=== PATIENT | male | born 1970 | race Caucasian/White ===

== ENCOUNTER → 2016-11-26 | Outpatient (CLI) | payer OTHER ==
[~2016-11-26] MED LIST: /CELE20CA OR; E-Z-GAS II EFFERVESCENT PACKET (SODIUM BICARB./CITRIC ACID/SIMETHICONE) As Ordered ONE; E-Z-HD 98% w/w 340GM SUSP BTL As Ordered ONE; E-Z-PAQUE 96% w/w SUSP 176GM BTL As Ordered ONE; GLUC500T3 OR; MULTIVIT OR
--- NOTE | 2016-11-26 16:55 | REP ---
Esophagram The procedure was performed under the direct supervision of Dr. Cuevas. The images were reviewed with Dr. Cuevas. A single view PA chest x-ray is submitted as a attending pathologist film. The superior mediastinal structures are midline. The heart size is within normal limits. The lungs are clear. Liquid barium and gas producing granules were given in the erect position as well as liquid barium in the prone oblique positions in order to perform a double contrast esophagram examination. The oral and pharyngeal stages of deglutition are unremarkable. Esophageal transport is prompt and efficient and there is no esophagitis, stricture, mucosal ring or hiatal hernia. Gastroesophageal reflux is not demonstrated on this examination. Impression: essentially unremarkable double contrast esophagram examination. 40 seconds of fluoro time was utilized for this procedure. Reviewed by ELIAJH Escoto 11/26/2016 04:42 PSigned by Moose Cuevas MD 11/26/2016 04:47 P
== END ==
LOC: M RAD 06:45
PROVIDERS: ATTEND Specialist
DX: K21.9 Gastro-esophageal reflux disease without esophagitis (principal)

== ENCOUNTER → 2017-01-28 | Outpatient (CLI) | payer OTHER ==
[~2017-01-28] MED LIST changes: -E-Z-GAS II EFFERVESCENT PACKET (SODIUM BICARB./CITRIC ACID/SIMETHICONE) As Ordered ONE; -E-Z-HD 98% w/w 340GM SUSP BTL As Ordered ONE; -E-Z-PAQUE 96% w/w SUSP 176GM BTL As Ordered ONE; +METHACHOLINE KIT (J7674) INH ONE
--- NOTE | 2017-01-28 09:25 | PFTRPT ---
Tech: José THOMPSON RRT Age: 46 Sex: Male Race: Height: 70.50 Inches Weight: 220.00 Lbs BSA: 2.18 Diagnosis: R05 METHACHOLINE CHALLENGE REPORT: ORDERING PROVIDER: FAZAL Francis DATE OF SERVICE: 01/28/17 INTERPRETATION: The study was of excellent technical quality. Under protocol, methacholine was administered. At a dose of 0.025 mg (0.125 CDUs), a 32% decline in the FEV1 was noted. Flow rates did return to baseline post bronchodilator administration. IMPRESSION: Positive methacholine challenge study. MTDD
== END ==
LOC: M CARPUL 08:55
PROVIDERS: ATTEND Nurse Practitioner Adult Health
DX: R05 Cough (principal)
CPT/HCPCS: 94070; J7674

== ENCOUNTER → 2017-12-27 | Outpatient (CLI) | payer OTHER | LOC: M PLARAD 10:22 | DX: M65.871 Other synovitis and tenosynovitis, right ankle and foot (principal) | CPT/HCPCS: 73721 ==

== ENCOUNTER → 2018-02-27 | Outpatient (CLI) | payer OTHER | LOC: M PLARAD 09:47 | DX: M47.812 Spondylosis without myelopathy or radiculopathy, cervical region (principal); M54.12 Radiculopathy, cervical region; M54.6 Pain in thoracic spine; M51.26 Other intervertebral disc displacement, lumbar region; R93.7 Abnormal findings on diagnostic imaging of other parts of musculoskeletal system | CPT/HCPCS: 72141 ==

== ENCOUNTER → 2018-08-12 | Outpatient (REF) | payer OTHER ==
[~2018-08-12] MED LIST changes: -/CELE20CA OR; +CELE1CAP4 OR; -METHACHOLINE KIT (J7674) INH ONE
[2018-08-12 18:28] LABS: INR 0.99; PROTHROMBIN TIME 13.2 SECONDS (12.1-14.4)
[2018-08-12 18:29] LABS: PARTIAL THROMBOPLASTIN TIME 27.9 SECONDS (25.4-37.6)
== END ==
LOC: M LABDRAW1 17:04
PROVIDERS: ATTEND Physician Assistant
DX: Z01.812 Encounter for preprocedural laboratory examination (principal)

== ENCOUNTER → 2019-05-17 | Outpatient (REF) | payer OTHER ==
[2019-05-17 15:30] LABS: PLATELET COUNT, AUTOMATED 160 10^3/uL (150-450)
[2019-05-17 15:42] LABS: PARTIAL THROMBOPLASTIN TIME 27.4 SECONDS (25.0-38.4); PROTHROMBIN TIME 12.9 SECONDS (11.8-14.0)
== END ==
LOC: M LABDRAW1 11:27
PROVIDERS: ATTEND Physician Assistant
DX: M47.22 Other spondylosis with radiculopathy, cervical region (principal)

== ENCOUNTER → 2019-07-23 | Outpatient (CLI) | payer OTHER ==
--- NOTE | 2019-07-23 10:51 | REP ---
Ultrasonography of the anterior abdominal wall in the location of a palpable lump just superior and left lateral to the umbilicus: Ultrasonography of the palpable lump identifies a mottled hyperechoic mass within the abdominal wall soft tissues measuring 3.3 x 2.5 x 4.4 cm. This is nonspecific and could represent a soft tissue mass, abscess, organizing hematoma or neoplasm. The Followup MRI might be considered for further evaluation. Electronically Signed by Benji Murry MD 07/23/2019 10:43 A
== END ==
LOC: M RAD 09:02
PROVIDERS: ATTEND Surgery
DX: R19.02 Left upper quadrant abdominal swelling, mass and lump (principal)

== ENCOUNTER → 2019-08-19 | Outpatient (CLI) | payer OTHER ==
[~2019-08-19] MED LIST changes: +GASTROGRAFIN SOLUTION 30ML (Q9963) As Ordered ONE; +ISOVUE-370 76% 100ML VIAL (Q9967) As Ordered ONE
--- NOTE | 2019-08-19 10:58 | REP ---
REASON: Anterior abdominal wall palpable mass. Comparison CT: None. Prior ultrasound of 07/23/2019 showed a 3.3 x 2.5 x 4.4 cm sized hyperechoic mass along the anterior abdominal wall in a supraumbilical left parasagittal location. The lung bases are clear. Contrast: 100 mL Isovue 370. The liver, gallbladder, spleen, pancreas, adrenal glands, and kidneys are within normal limits. The abdominal aorta and periaortic regions are within normal limits. The bowel loops and their mesenteries are within normal limits. There is no free fluid or free air. In the supraumbilical region, just to the left of the midline abdomen, there is a small ventral rent and through which mesentery protrudes. The aperture of the rent is approximately 1.6 cm. There are no anterior abdominal wall abnormalities. Bone window technique throughout the examination shows the osseous structures to be within normal limits. IMPRESSION: Small ventral rent as described above. Electronically Signed by Sharan Siddiqui DO 08/19/2019 11:10 A
== END ==
LOC: M RAD 09:01
PROVIDERS: ATTEND Surgery
DX: R22.2 Localized swelling, mass and lump, trunk (principal)
CPT/HCPCS: 74170; Q9963; Q9967

== ENCOUNTER → 2019-10-30 | Outpatient (CLI) | payer OTHER ==
[~2019-10-30] MED LIST changes: -GASTROGRAFIN SOLUTION 30ML (Q9963) As Ordered ONE; -ISOVUE-370 76% 100ML VIAL (Q9967) As Ordered ONE
== END ==
LOC: M LABSMTC 10:14
PROVIDERS: ATTEND Anesthesiology
DX: Z01.818 Encounter for other preprocedural examination (principal); Z11.59 Encounter for screening for other viral diseases
CPT/HCPCS: C9803; U0003

== ENCOUNTER → 2020-01-31 | Outpatient (CLI) | payer OTHER ==
[~2020-01-31] MED LIST changes: +CELE100C PO; +FLON1SPR NARES; +NORC1TAB7 PO; +ZYRTTAB8 PO
== END ==
LOC: M PAIN 08:31
PROVIDERS: ATTEND Family Medicine
DX: G90.50 Complex regional pain syndrome I, unspecified (principal)

== ENCOUNTER → 2020-02-17 | Outpatient (CLI) | payer OTHER | LOC: M LABSMTC 13:51 | PROVIDERS: ATTEND Anesthesiology | DX: Z01.812 Encounter for preprocedural laboratory examination (principal); Z20.828 Contact with and (suspected) exposure to other viral communicable diseases | CPT/HCPCS: C9803; U0003 ==

== ENCOUNTER 2020-02-22 07:01 | Day surgery (SDC) | payer OTHER ==
[~2020-02-22] VITALS: Ht 177.8 cm; Wt 103.6 kg
[~2020-02-22 07:01] MED LIST changes: -CELE100C PO; -FLON1SPR NARES; +LIDOCAINE 1% MDV 20ML VIAL SQ PRN; +LR 1,000 ML IV ONE; -NORC1TAB7 PO; -ZYRTTAB8 PO
[2020-02-22] MEDS ORDERED: ROCURONIUM BROMIDE 50 MG/5 ML VIAL As Ordered ONE (07:11)
[2020-02-22] MEDS ORDERED: LIDOCAINE 2% 100MG/5ML SDV (FOR ANES.) As Ordered ONE (07:11)
[2020-02-22] MEDS ORDERED: ONDANSETRON 4MG/2ML VIAL As Ordered ONE (07:11)
[2020-02-22] MEDS ORDERED: dexameTHASONE 4 MG/ML 1ML VIAL (J1100 PER 1MG) As Ordered ONE (07:11)
[2020-02-22] MEDS ORDERED: fentaNYL 250 MCG/5 ML INJECTION (J3010) As Ordered ONE (07:12)
[2020-02-22] MEDS ORDERED: MIDAZOLAM INJ 2MG/2ML VIAL (J2250 PER 1MG) As Ordered ONE (07:12)
[2020-02-22] MEDS ORDERED: propofoL 200 MG/20 ML VIAL As Ordered ONE (07:14)
[2020-02-22] MEDS ORDERED: CELE100C PO (07:33)
[2020-02-22] MEDS ORDERED: ZYRTTAB8 PO (07:33)
[2020-02-22] MEDS ORDERED: FLON1SPR NARES (07:33)
[2020-02-22] MEDS ORDERED: BUPIVACAINE HCL 0.25% 30ML VIAL As Ordered ONE (08:38)
[2020-02-22] MEDS ORDERED: NORC1TAB7 PO (08:57)
[2020-02-22] MEDS ORDERED: GLYCOPYRROLATE INJ 0.2 MG/ML 2 ML VIAL As Ordered ONE (09:46)
[2020-02-22] MEDS ORDERED: NEOSTIGMINE 10MG/10ML VIAL (J2710 PER 0.5MG) As Ordered ONE (09:46)
[2020-02-22] MEDS ORDERED: fentaNYL 100 MCG/2 ML INJECTION (J3010) IV PRN (10:45)
[2020-02-22] MEDS ORDERED: ACETAMINOPHEN TAB 650MG DOSE (2X325MG) PO PRN (10:45)
[2020-02-22] MEDS ORDERED: oxyCODONE 5MG TAB PO PRN (10:45)
[2020-02-22] MEDS ORDERED: HYDROMORPHONE HCL 0.5 MG/ 0.5 ML SYRINGE (J1170 PER 1) IV PRN (10:45)
[2020-02-22] MEDS ORDERED: IBUPROFEN 600MG TAB PO PRN (10:45)
[2020-02-22] MEDS ORDERED: NORCO, ANEXSIA 5/325MG TABLET (HYDROcodone/ACETAMINOPHEN) PO PRN (10:45)
[2020-02-22] MEDS ORDERED: ONDANSETRON 4MG/2ML VIAL IV PRN (10:45)
[2020-02-22] MEDS ORDERED: LR 1,000 ML IV SCH (10:45)
[2020-02-22 11:50] VITALS: BP 140/88
--- NOTE | 2020-02-22 14:05 | RO ---
DATE OF OPERATION: 02/22/2020 PREOPERATIVE DIAGNOSIS: Epigastric ventral hernia. POSTOPERATIVE DIAGNOSIS: Epigastric ventral hernia. PROCEDURE PERFORMED: Open ventral hernia repair. SURGEON: Denis Peters MD ANESTHESIA: General. INDICATIONS FOR THE PROCEDURE: The patient is a 49-year-old man who had noticed a tender nodule in the epigastrium slightly to the left of the midline several months ago. A small nodule persisted although the tenderness remitted. Imaging confirmed a small epigastric hernia arising near the midline. He is now for open repair. OPERATIVE PROCEDURE: The patient was brought to the operating room and placed on the table in supine position. He was placed under general endotracheal anesthesia. The patients abdomen was prepped and draped in sterile fashion. An approximately 4 cm transverse skin incision was made crossing the midline at the level of the palpable subcutaneous nodule. A combination of short and cautery dissection was used to carry the dissection down to the midline. To the left of the midline an approximately 3 cm firm mass of fibrofatty tissue was identified. This was freed laterally and posteriorly and rotated medially and tracked down to an approximately 1 cm fascial defect. The fatty tissue was carefully transected just outside the level of the fascia. There was no evidence of a peritoneal sac. Hemostasis was ensured before reducing the last small stump of the hernia contents into the abdomen. The fascia was closed transversely with interrupted simple sutures of 2-0 Ethibond. The wound was irrigated and hemostasis was ensured with the cautery. Approximately 20 mL of 0.25% Marcaine were infiltrated about the wound. The skin edges were brought into apposition with severe buried 3-0 Vicryl sutures. A running subcuticular 4-0 Vicryl was then placed to approximate the skin edges closely. Steri-Strips were applied. A light dressing was applied. The fibrofatty contents of the hernia were sent for permanent pathology. The patient tolerated the procedure well. He was awakened in the operating room, extubated and moved to the recovery room in stable condition. NESHA
== END 2020-02-22 11:50 | disposition home or self-care (01) ==
LOC: M SDC 07:01
PROVIDERS: ATTEND Surgery
DX: K43.9 Ventral hernia without obstruction or gangrene (principal); Z88.0 Allergy status to penicillin
CPT/HCPCS: 49560; 88302; J1100; J2250; J2405; J2710; J3010

== ENCOUNTER → 2020-08-09 | Outpatient (CLI) | payer OTHER ==
[~2020-08-09] MED LIST changes: +CELE100C PO; +FLON1SPR NARES; -LIDOCAINE 1% MDV 20ML VIAL SQ PRN; -LR 1,000 ML IV ONE; +NORC1TAB7 PO; +ZYRTTAB8 PO
--- NOTE | 2020-08-09 10:12 | REPVR ---
PROCEDURE INFORMATION: Exam: MR Cervical Spine Without Contrast Exam date and time: 08/09/2020 8:09 AM Age: 50 years old Clinical indication: Radicular pain (radiculopathy); Cervical region; Additional info: Other spondylosis with radiculopathy TECHNIQUE: Imaging protocol: Multiplanar magnetic resonance images of the cervical spine without contrast. COMPARISON: MRI-Spine,Cervical without con 02/27/2018 10:45 AM FINDINGS: Limitations: There is motion artifact partially degrading examination. Vertebrae: Vertebral body heights are maintained. No acute fracture. There is stable alignment with slight kyphosis from C2 through C6 and grade 1 retrolisthesis of C5 on C6. There is disc desiccation. There is mild disc height loss C5-C6. Craniocervical junction appears unremarkable. Normal position of cerebellar tonsils without evidence of Chiari I malformation. Vertebral body marrow signal is unremarkable. Spinal cord: Cervical spinal cord signal is normal without intrinsic cord lesions. C2-C3: There is no significant disc bulge. There is no significant cord compression. There is no neural foraminal or spinal stenosis. C3-C4: There is mild disc bulge and minimal osteophyte. There is no significant cord compression or spinal stenosis. There are uncinate and facet osteophytes with stable left greater than right neural foraminal narrowing, likely mild right and moderate left. C4-C5: There is mild disc bulge and minimal osteophyte. There is no significant cord compression or spinal stenosis. There are uncinate and facet osteophytes with mild bilateral neural foraminal narrowing. C5-C6: There is posterior osteophyte disc complex, which incompletely effaces the ventral subarachnoid space. There is no significant cord compression or spinal stenosis. There are uncinate and facet osteophytes with likely mild right and moderate left neural foraminal narrowing. C6-C7: There is minimal disc bulge and a very small focal right paracentral approximately 1 mm protrusion. There is no significant cord compression or spinal stenosis. There is no significant neural foraminal narrowing. C7-T1: There is no significant disc bulge. There is no significant cord compression. There is no neural foraminal or spinal stenosis. Soft tissues: Unremarkable. Vertebral arteries: Expected flow voids in the vertebral arteries. IMPRESSION: Findings appear stable to comparison study. No cord compression or spinal stenosis. Neural foraminal narrowing greatest left C3-C4 and C5-C6. Electronically signed by: Seema Rogers On 08/09/2020 10:12:17 AM
== END ==
LOC: M RAD 07:37
PROVIDERS: ATTEND Physician Assistant
DX: M47.22 Other spondylosis with radiculopathy, cervical region (principal)

== ENCOUNTER → 2020-10-19 | Outpatient (CLI) | payer OTHER ==
[2020-10-19 08:28] LABS: PLATELET COUNT, AUTOMATED 125 10^3/uL (150-450)
[2020-10-19 08:37] LABS: INR 0.92; PARTIAL THROMBOPLASTIN TIME 26.3 SECONDS (24.2-38.5); PROTHROMBIN TIME 12.6 SECONDS (12.5-14.3)
== END ==
LOC: M LAB 07:33
PROVIDERS: ATTEND Physical Medicine & Rehabilitation
DX: M50.223 Other cervical disc displacement at C6-C7 level (principal)

== ENCOUNTER → 2020-12-13 | Outpatient (CLI) | payer OTHER ==
[2020-12-13 11:05] LABS: BASO % 0.4 % (0.0-1.0); EOS % 0.8 % (0.0-3.0); HEMOGLOBIN 15.6 g/dl (13.5-17.5); LYMPH # 1.7 10^3/uL (1.5-5.0); LYMPH % 33.7 % (24.0-44.0); MEAN CORPUSCULAR HEMOGLOBIN 28.7 pg (27.0-33.0); MEAN CORPUSCULAR HGB CONC 33.2 g/dl (32.0-36.5); MEAN CORPUSCULAR VOLUME 86.6 fl (80.0-96.0); MONO # 0.6 10^3/uL (0.0-0.8); MONO % 11.5 % (2.0-8.0); NEUTROPHILS # 2.7 10^3/uL (1.5-8.5); NEUTROPHILS % 53.2 % (36.0-66.0); PLATELET COUNT, AUTOMATED 152 10^3/uL (150-450); RED BLOOD COUNT 5.43 10^6/uL (4.30-6.10); WHITE BLOOD COUNT 5.1 10^3/uL (4.0-10.0)
[2020-12-13 11:44] LABS: FREE T4 0.81 NG/DL (0.76-1.46); THYROID STIMULATING HORMONE 1.06 uIU/ML (0.358-3.740)
[2020-12-14 19:07] LABS: TESTOSTERONE FREE (DIRECT) 10.1 pg/mL (6.8-21.5)
== END ==
LOC: M LAB 09:48
PROVIDERS: ATTEND Family Medicine
DX: D69.6 Thrombocytopenia, unspecified (principal); R68.82 Decreased libido

== ENCOUNTER → 2021-06-11 | Outpatient (CLI) | payer OTHER ==
[~2021-06-11] MED LIST changes: +LIDOCAINE 1% MDV 20ML VIAL As Ordered ONE; +TRIAMCINOLONE ACETONIDE SUSP 40 MG/ML VIAL (J3301) As Ordered ONE
== END ==
LOC: M IRPRO 12:04
PROVIDERS: ATTEND Orthopaedic Surgery
DX: M75.22 Bicipital tendinitis, left shoulder (principal)
CPT/HCPCS: 20550; 76942; J3301

== ENCOUNTER → 2021-09-12 | Outpatient (CLI) | payer OTHER | LOC: M IRPRO 12:07 | PROVIDERS: ATTEND Orthopaedic Surgery | DX: M75.22 Bicipital tendinitis, left shoulder (principal) | CPT/HCPCS: 20550; 76942; J3301 ==

== ENCOUNTER → 2022-05-15 | Outpatient (CLI) | payer OTHER ==
[~2022-05-15] MED LIST changes: -TRIAMCINOLONE ACETONIDE SUSP 40 MG/ML VIAL (J3301) As Ordered ONE; +TRIAMCINOLONE ACETONIDE SUSP 40MG/ML 1ML VIAL As Ordered ONE
== END ==
LOC: M IRPRO 10:05
PROVIDERS: ATTEND Orthopaedic Surgery
DX: M75.22 Bicipital tendinitis, left shoulder (principal)
CPT/HCPCS: 20550; 76942; J3301

== ENCOUNTER → 2023-04-17 | Outpatient (CLI) | payer OTHER ==
[~2023-04-17] MED LIST changes: -LIDOCAINE 1% MDV 20ML VIAL As Ordered ONE; -TRIAMCINOLONE ACETONIDE SUSP 40MG/ML 1ML VIAL As Ordered ONE
== END ==
LOC: M SLEEP HO 10:53
PROVIDERS: ATTEND Physician Assistant
DX: G47.33 Obstructive sleep apnea (adult) (pediatric) (principal); G47.10 Hypersomnia, unspecified

== ENCOUNTER → 2023-11-11 | Outpatient (CLI) | payer OTHER ==
[2023-11-11 11:46] LABS: BASO % 0.2 % (0.0-1.0); EOS % 0.2 % (0.0-3.0); HEMATOCRIT 47.6 % (42.0-52.0); LYMPH # 1.5 10^3/uL (1.5-5.0); LYMPH % 25.9 % (24.0-44.0); MEAN CORPUSCULAR HEMOGLOBIN 28.9 pg (27.0-33.0); MEAN CORPUSCULAR HGB CONC 33.6 g/dl (32.0-36.5); MEAN CORPUSCULAR VOLUME 86.1 fl (80.0-96.0); MONO # 0.5 10^3/uL (0.0-0.8); MONO % 8.2 % (2.0-8.0); NEUTROPHILS # 3.8 10^3/uL (1.5-8.5); PLATELET COUNT, AUTOMATED 188 10^3/uL (150-450); RED BLOOD COUNT 5.53 10^6/uL (4.30-6.10); WHITE BLOOD COUNT 5.9 10^3/uL (4.0-10.0)
[2023-11-11 11:57] LABS: LIPASE 37 U/L (12-53)
[2023-11-11 11:59] LABS: ALBUMIN 4.1 G/DL (3.2-5.2); ALKALINE PHOSPHATASE 67 U/L (46-116); ALT/SGPT 21 U/L (7.0-40); AST/SGOT < 8 U/L (<34); BILIRUBIN,DIRECT 0.5 MG/DL (<0.4); BILIRUBIN,TOTAL 1.9 MG/DL (0.3-1.2); BLOOD UREA NITROGEN 21 MG/DL (9-23); CALCIUM LEVEL 9.1 MG/DL (8.5-10.1); CARBON DIOXIDE LEVEL 29 MMOL/L (20-31); CHLORIDE LEVEL 105 MMOL/L (98-107); CREATININE FOR GFR 1.24 MG/DL (0.70-1.30); GLOMERULAR FILTRATION RATE > 60.0 (>56); GLUCOSE, FASTING 99 MG/DL (60-100); POTASSIUM SERUM 4.3 MMOL/L (3.5-5.1); SODIUM LEVEL 140 MMOL/L (136-145); TOTAL PROTEIN 6.9 G/DL (5.7-8.2)
[2023-11-11 12:06] LABS: APPEARANCE, URINE CLEAR (CLEAR); BACTERIA, URINE AUTO NEGATIVE (NEGATIVE); BILIRUBIN, URINE AUTO NEGATIVE (NEGATIVE); BLOOD, URINE BLOOD NEGATIVE (NEGATIVE); COLOR, URINE YELLOW (YELLOW); GLUCOSE, URINE (UA) AUTO NEGATIVE (NEGATIVE); KETONE, URINE AUTO NEGATIVE (NEGATIVE); LEUKOCYTE ESTERASE, URINE AUTO NEGATIVE (NEGATIVE); MUCUS, URINE SMALL (NEGATIVE); NITRITE, URINE AUTO NEGATIVE (NEGATIVE); PROTEIN, URINE AUTO NEGATIVE (NEGATIVE); RBC, URINE AUTO 0 /HPF (0-3); SPECIFIC GRAVITY URINE AUTO 1.028 (1.002-1.035); SQUAMOUS EPITHELIAL CELL UR AU 0 /HPF (0-6); UROBILINOGEN, URINE AUTO 0.2 mg/dL (0.0-2.0); WBC, URINE AUTO 0 /HPF (0-3)
== END ==
LOC: M LAB 10:44
PROVIDERS: ATTEND Physician Assistant
DX: R63.4 Abnormal weight loss (principal)

== ENCOUNTER → 2023-11-26 | Outpatient (CLI) | payer OTHER ==
[2023-11-26 12:35] LABS: LIPASE 43 U/L (12-53)
[2023-11-26 12:37] LABS: ALBUMIN 4.2 G/DL (3.2-5.2); ALKALINE PHOSPHATASE 64 U/L (46-116); ALT/SGPT 23 U/L (7.0-40); AST/SGOT < 8 U/L (<34); BILIRUBIN,DIRECT 0.4 MG/DL (<0.4); BILIRUBIN,TOTAL 1.5 MG/DL (0.3-1.2); TOTAL PROTEIN 6.8 G/DL (5.7-8.2)
== END ==
LOC: M LAB 11:23
PROVIDERS: ATTEND Physician Assistant
DX: R74.8 Abnormal levels of other serum enzymes (principal)

== ENCOUNTER → 2023-11-27 | Outpatient (CLI) | payer OTHER ==
[~2023-11-27] MED LIST changes: +GASTROGRAFIN SOLUTION 30ML As Ordered ONE; +ISOVUE-370 76% 100ML VIAL As Ordered ONE
== END ==
LOC: M RAD 10:56
PROVIDERS: ATTEND Physician Assistant
DX: R63.4 Abnormal weight loss (principal); K40.20 Bilateral inguinal hernia, without obstruction or gangrene, not specified as recurrent; K42.9 Umbilical hernia without obstruction or gangrene
CPT/HCPCS: 74177; Q9963; Q9967

== ENCOUNTER 2024-05-07 10:34 | Day surgery (SDC) | payer OTHER ==
[~2024-05-07] VITALS: Ht 177.8 cm; Wt 99.8 kg
[~2024-05-07 10:34] MED LIST changes: -GASTROGRAFIN SOLUTION 30ML As Ordered ONE; -ISOVUE-370 76% 100ML VIAL As Ordered ONE
[2024-05-07] MEDS ORDERED: LIDOCAINE 2% 100MG/5ML SDV (FOR ANES.) As Ordered ONE (12:49)
[2024-05-07] MEDS ORDERED: fentaNYL 100 MCG/2 ML INJECTION As Ordered ONE (12:49)
[2024-05-07] MEDS ORDERED: propofoL 200 MG/20 ML VIAL As Ordered ONE (12:49)
[2024-05-07 13:13] VITALS: TEMP 97.3
[2024-05-07 13:32] VITALS: BP 160/92; O2SAT 98
== END 2024-05-07 13:36 | disposition home or self-care (01) ==
LOC: M OPP 10:34
PROVIDERS: ATTEND Surgery
DX: Z12.11 Encounter for screening for malignant neoplasm of colon (principal); R13.10 Dysphagia, unspecified; M19.90 Unspecified osteoarthritis, unspecified site; F43.10 Post-traumatic stress disorder, unspecified; Z88.1 Allergy status to other antibiotic agents
CPT/HCPCS: 43235; 45378; J3010